=== PATIENT | female | born 1990 | race African-American/Black ===

== ENCOUNTER 2018-03-01 14:27 | Emergency (ER) | payer MEDICAID ==
[~2018-03-01] VITALS: Ht 162.6 cm; Wt 48.8 kg
[2018-03-01 16:34] LABS: CLARITY URINE CLEAR (CLEAR); COLOR URINE YELLOW (YELLOW); KETONES URINE NEGATIVE (NEGATIVE); LEUKOCYTE ESTERASE URINE 2+ (NEGATIVE); NITRITE URINE NEGATIVE (NEGATIVE); OCCULT BLOOD URINE 1+ (NEGATIVE); PROTEIN URINE NEGATIVE (NEGATIVE); SPECIFIC GRAVITY URINE 1.013 (1.005-1.030); UROBILINOGEN URINE 0.2 E.U./dL (0.2-1.0)
[2018-03-01 16:38] LABS: UCG SCREEN NEGATIVE
[2018-03-01] MEDS ORDERED: ACETAMINOPHEN 325MG TABLET PO ONE (18:00)
[2018-03-01 19:00] VITALS: BP 120/75
== END 2018-03-01 19:01 | disposition home or self-care (01) ==
LOC: ER 16:11
DX: N39.0 Urinary tract infection, site not specified (principal)
CPT/HCPCS: 81003; 81025; 99283